=== PATIENT | male | born 1975 | race Caucasian/White ===

== ENCOUNTER 2016-06-27 12:12 | Emergency (ER) ==
[2016-06-27 12:21] VITALS: BP 141/98
--- NOTE | 2016-06-27 13:11 | PROVIDER DOCUMENTATION ---
HPI-Work Related Injury - General Chief Complaint: Work Related Injury Stated Complaint: WORK RELATED INJURY Time Seen by Provider: 06/27/16 12:47 Source: patient - History of Present Illness-Work Injury Nature of PresentingProblem: 40 y/o WM c/o left lower back pain after lifting a box this morning. Works at [employer], does lifting regularly for his job. No hx of back pain, but now since he felt the pain in the back with lifting, has continued left lower back pain, radiating into the buttocks and sometimes down the left leg. Denies saddle anesthesias, paresthesias, bowel or bladder incontinence. Denies other complaints at this time. Workman's Comp Review of Systems - Adult - REVIEW OF SYSTEMS - ADULT Constitutional: reports: no symptoms reported. denies: chills, fever, fatique Eyes: reports: no symptoms reported. denies: blurred vision, double vision, eye pain Ears, Nose, Mouth & Throat: reports: no symptoms reported. denies: ear pain, nose pain, throat pain Cardiovascular: reports: no symptoms reported. denies: chest pain, palpitations Respiratory: reports: no symptoms reported. denies: cough, shortness of breath , wheezing Gastrointestinal: reports: no symptoms reported. denies: abdominal pain, diarrhea, nausea, vomiting Genitourinary: reports: no symptoms reported. denies: incontinence Musculoskeletal: reports: see HPI, back pain. denies: bone pain, joint pain, muscle aches, neck pain Integumentary: reports: no symptoms reported. denies: rash Neurological: reports: no symptoms reported. denies: dizziness/vertigo, headache/migraines Psychiatric: reports: no symptoms reported Endocrine: reports: no symptoms reported Hematologic/Lymphatic: reports: no symptoms reported Allergic/Immunologic: reports: no symptoms reported All Other Systems: Reviewed and Negative Past History - Adult - PAST MEDICAL HISTORY-ADULT Review of Records: reports: Old Records Reviewed, Nursing Assessment Review, Medications Reviewed, Social history reviewed & non-contributory. Major Childhood Illnesses: reports: denies history Cardiovascular: reports: denies history Respiratory: reports: denies history Gastrointestinal: reports: denies history Genitourinary: reports: denies history Musculoskeletal: reports: denies history Neurological: reports: Seizures/Epilepsy Endocrine/Immune: reports: denies history Other Conditions: reports: denies history - PRIOR SURGERIES/PROCEDURES Surgical/Procedure History: reports: reviewed, not pertinent - IMMUNIZATION STATUS Childhood Immunizations: See Nurse Assessment Flu Vaccine: See Nurse Assessment - FAMILY HISTORY Family History: reviewed, not pertinent - SOCIAL HISTORY Smoking: denies Substance Use: none/never Alcohol Use Frequency: never Physical Exam-Injury Related - Physical Exam-Injury Related Initial Vital Signs Reviewed: Yes General Appearance: appears well, alert, no apparent distress Eyes: PERRL/EOMI, pink conjunctivae Head, Ears, Nose, Mouth & Throat: normocephalic/atraumatic, moist mucous membranes, normal ENT inspection Neck: non-tender, full range of motion, supple, normal inspection. negative: C- spine tenderness Respiratory: chest non-tender, lungs clear, normal breath sounds, no pleuratic chest pain, no respiratory distress, no accessory muscle use. negative: respiratory distress, decreased breath sounds, accessory muscle use, crackles, rales, rhonchi, stridor, wheezing Cardiovascular: normal peripheral pulses, regular rate, rhythm, no edema, no gallop, no JVD, no murmur. negative: tachycardia Abdominal Exam: normal bowel sounds, non tender, soft, no organomegaly, no pulsatile mass. negative: abdominal bruit, abnormal bowel sounds, distended, guarding, rigid, rebound, tenderness Lymphatic: no adenopathy Back Exam: normal inspection, no vertebral tenderness, other (negative straight leg test bilaterally). negative: decreased range of motion Extremity: normal range of motion, non-tender, normal gait, normal inspection, no pedal edema, no calf tenderness, normal capillary refill, pelvis stable Integumentary: normal color, warm/dry Neurologic: grossly normal, no motor/sensory deficits Psych/Mental Status: AL, normal mood/affect, normal thought content, normal thought process, oriented x 3 - Glascow Coma Score Best Eye Response ([place]): (4) open spontaneously Best Verbal Response (Laura): (5) oriented Best Motor Response (Laura): (6) obeys commands Progress - PLAN OF CARE/RESULTS Progress/Plan/Lab Results: Vital Signs Temp Pulse Resp BP Pulse Ox 06/27/16 12:19 98.5 F 81 16 141/98 100 Orders Category Date Time Status LUMBAR SPINE [RAD] Stat Exams 06/27/16 12:30 Taken [facility] URINE DRUG SCREEN Stat Lab 06/27/16 13:37 Uncollected Ketorolac [Toradol] Med 06/27/16 13:37 Discontinued 30 mg IM NOW ONE - XRAY 1 XRAY: Bilateral XRAY Study: Lumbar Spine Impression: Normal (NAD per Dr. Cortes, radiology) Departure - Departure Time of Disposition Order: 13:43 DIAGNOSIS: Low back sprain Qualifiers: Encounter type: initial encounter Qualified Code(s): S33.9XXA - Sprain of unspecified parts of lumbar spine and pelvis, initial encounter Disposition: HOME 01 Certified Medical Emergency: Emergent Condition: Stable Additional Instructions: Follow up with [facility] Follow Up Instructions: You have been treated by a care provider in the Emergency Department. These instructions are being provided to you so you can have an understanding of how to care for yourself upon discharge. Upon discharge from the Emergency Department, you are responsible for making arrangements for follow-up care by a physician of your choice. Take all prescribed medications as directed. Return to the Emergency Department immediately for any new or worsening symptoms. You may call the Physician Referral phone number at [phone] to obtain a list of Physicians who are taking new patients. Prescriptions: Cyclobenzaprine [Flexeril] 10 mg PO TID #20 tablet Attestation - Physician/ Mid-level Attestation Patient care was provided by Mid-level provider (ANALYTICAL LAB ANALYST/PA):: Yes Mid-level provider:: Elda Mcfadden Mid-level documentation review:: The Mid-level provider documentation, treatment plan and medical decision making was reviewed by the physician who agrees with all treatment and medical decision making by the [facility].
[2016-06-27] MEDS ORDERED: TORADOL IM ONE (13:37)
--- NOTE | 2016-06-27 14:06 | Diag Imaging Result Document ---
PROCEDURE NAME: LUMBAR SPINE - 06/27/2016 X-RAY LUMBAR SPINE 6 VIEWS: COMPARISON: None. FINDINGS: Alignment is anatomic. Vertebral body heights are preserved. There are small multilevel degenerative osteophytes, most notably at L2-3 and L3-4. No pars defect. No fracture or subluxation. Sacroiliac joints are preserved. IMPRESSION: Mild multilevel degenerative disk disease. No acute disease.
== END 2016-06-27 14:14 | disposition home or self-care (01) ==
LOC: ED 12:12
DX: S33.9XXA Sprain of unspecified parts of lumbar spine and pelvis, initial encounter (principal); M54.5 Low back pain; M79.1 Myalgia; M79.605 Pain in left leg; R56.9 Unspecified convulsions; Z79.899 Other long term (current) drug therapy; X58.XXXA Exposure to other specified factors, initial encounter
CPT/HCPCS: 72110; 96372; J1885